=== PATIENT | female | born 1945 | race Caucasian/White ===

== ENCOUNTER 2017-05-19 08:10 | Emergency (ER) | payer MEDICARE, OTHER ==
[~2017-05-19] VITALS: Ht 157.5 cm; Wt 50.0 kg
[2017-05-19] MEDS ORDERED: ZITHROMAX250 MG PO (08:48)
[2017-05-19 08:52] VITALS: BP 113/62
== END 2017-05-19 09:00 | disposition home or self-care (01) ==
LOC: ED 08:10
DX: J40 Bronchitis, not specified as acute or chronic (principal); R06.02 Shortness of breath; R05 Cough

== ENCOUNTER 2017-05-27 10:11 | Emergency (ER) | payer MEDICARE, OTHER ==
[~2017-05-27] VITALS: Ht 157.5 cm; Wt 49.0 kg
[~2017-05-27 10:11] MED LIST: ZITHROMAX250 MG PO
[2017-05-27] MEDS ORDERED: METOPROL TAR25 MG PO (10:44)
[2017-05-27] MEDS ORDERED: OMEPRAZOLE10 MG PO (10:44)
[2017-05-27] MEDS ORDERED: SLOW-MAG PO (10:45)
[2017-05-27] MEDS ORDERED: ASPIRIN81 MG PO (10:45)
[2017-05-27] MEDS ORDERED: SIMVASTATIN40 MG PO (10:46)
[2017-05-27] MEDS ORDERED: MIRTAZAPINE15 MG PO (10:46)
[2017-05-27] MEDS ORDERED: PROAIR HFA IN (10:47)
[2017-05-27 10:56] LABS: URINE BILIRUBIN - DIPSTICK NEGATIVE (NEGATIVE); URINE BLOOD DIPSTICK SMALL (NEGATIVE); URINE CLARITY CLEAR; URINE COLOR YELLOW; URINE GLUCOSE - DIPSTICK NEGATIVE (NEGATIVE); URINE KETONE NEGATIVE (NEGATIVE); URINE LEUK ESTERASE NEGATIVE (NEGATIVE); URINE NITRITE - DIPSTICK NEGATIVE (Negative); URINE PROTEIN - DIPSTICK NEGATIVE (NEG-TRACE); URINE SPECIFIC GRAVITY 1.015; URINE UROBILINOGEN - DIPSTICK 0.2 E.U./dL (0.2)
[2017-05-27 10:59] LABS: HEMATOCRIT 46.1 % (37.0-47.0); HEMOGLOBIN 14.9 g/dl (12.0-16.0); IMMATURE GRANULOCYTES 1.1 % (0.0-1.0); MEAN CELL VOLUME 97.1 fL CALC (80.0-100.0); MEAN CORPUSCULAR HGB 31.4 pG CALC (26.0-32.0); MEAN CORPUSCULAR HGB CONC 32.3 g/L CALC (32.0-36.0); NEUT# 4.94 thou/uL (2.00-7.15); RED BLOOD COUNT 4.75 mill/uL (4.20-5.60); RED CELL DISTRI WIDTH 12.1 % (11.5-15.5)
[2017-05-27 11:11] LABS: URINE SQUAMOUS EPITHELIAL CELL FEW EPI/hpf (0-FEW); URINE WBC 0-2 WBC/hpf (0-5)
[2017-05-27 11:34] LABS: ALBUMIN 4.7 g/dL (3.2-5.0); ALKALINE PHOSPHATASE 90 u/l (38-126); ANION GAP 17 (6-22 (CALC)); BILIRUBIN, TOTAL 0.6 mg/dL (0.0-1.4); BUN 18 mg/dL (8-23); BUN/CREATININE RATIO 28 (12-20 (CALC)); CALCIUM 9.8 mg/dL (8.4-10.2); CARBON DIOXIDE 32 mmol/l (22-30); CHLORIDE 97 mmol/l (95-108); CREATININE 0.6 mg/dL (0.5-1.0); GFR > 60 ML/MIN (>=60 (CALC)); GFR FOR AFR.AMER. > 60 ML/MIN (>=60 (CALC)); GLUCOSE 85 mg/dL (82-115); POTASSIUM 3.9 mmol/l (3.5-5.1); SGOT/AST 26 u/l (9-36); SGPT/ALT 30 u/l (11-66); SODIUM 142 mmol/l (137-146); TOTAL PROTEIN 8.3 g/dL (6.3-8.2)
[2017-05-27 11:46] LABS: MYOGLOBIN 40 ng/mL (0 - 62)
[2017-05-27] MEDS ORDERED: LEVAQUIN750 MG PO (13:22)
[2017-05-27] MEDS ORDERED: TYLENOL # 31 TA1 PO (13:22)
[2017-05-27] MEDS ORDERED: MEDDOSEPAK PO (13:22)
[2017-05-27 13:30] VITALS: BP 103/61
== END 2017-05-27 13:38 | disposition home or self-care (01) ==
LOC: ED 10:11
PROVIDERS: Emergency Medicine
DX: J40 Bronchitis, not specified as acute or chronic (principal); Z72.0 Tobacco use; R04.2 Hemoptysis; R91.8 Other nonspecific abnormal finding of lung field; R94.31 Abnormal electrocardiogram [ECG] [EKG]; I10 Essential (primary) hypertension

== ENCOUNTER 2017-07-06 14:16 | Emergency (ER) | payer MEDICARE, OTHER ==
[~2017-07-06] VITALS: Ht 157.5 cm; Wt 46.0 kg
[~2017-07-06 14:16] MED LIST changes: +ASPIRIN81 MG PO; +LEVAQUIN750 MG PO; +MEDDOSEPAK PO; +METOPROL TAR25 MG PO; +MIRTAZAPINE15 MG PO; +OMEPRAZOLE10 MG PO; +PROAIR HFA IN; +SIMVASTATIN40 MG PO; +SLOW-MAG PO; +TYLENOL # 31 TA1 PO
[2017-07-06] MEDS ORDERED: MEDDOSEPAK PO (16:05)
[2017-07-06] MEDS ORDERED: ZITHROMAX250 MG PO (16:05)
[2017-07-06 16:24] VITALS: BP 105/70
== END 2017-07-06 16:34 | disposition home or self-care (01) ==
LOC: ED 14:16
DX: R50.9 Fever, unspecified (principal); R05 Cough; J44.9 Chronic obstructive pulmonary disease, unspecified; F17.210 Nicotine dependence, cigarettes, uncomplicated; R09.89 Other specified symptoms and signs involving the circulatory and respiratory systems

== ENCOUNTER 2017-11-09 13:16 | Emergency (ER) | payer MEDICARE, OTHER ==
[~2017-11-09] VITALS: Ht 157.5 cm; Wt 50.4 kg
[2017-11-09] MEDS ORDERED: VENTOLIN HFA IN (13:47)
[2017-11-09] MEDS ORDERED: PREDNISONE50 MG PO (13:47)
[2017-11-09] MEDS ORDERED: ALBUTEROL SUL0.083 % IN (13:47)
[2017-11-09] MEDS ORDERED: ZITHROMAX250 MG PO (13:47)
[2017-11-09] MEDS ORDERED: COMBIVENT RESPIMAT IN (14:25)
[2017-11-09 14:44] VITALS: BP 102/67
== END 2017-11-09 14:50 | disposition home or self-care (01) ==
LOC: ED 13:16
DX: J44.0 Chronic obstructive pulmonary disease with (acute) lower respiratory infection (principal); J20.9 Acute bronchitis, unspecified; I10 Essential (primary) hypertension; K21.9 Gastro-esophageal reflux disease without esophagitis; E78.00 Pure hypercholesterolemia, unspecified; F32.9 Major depressive disorder, single episode, unspecified; F17.210 Nicotine dependence, cigarettes, uncomplicated

== ENCOUNTER 2017-12-31 13:07 | Emergency (ER) | payer MEDICARE, OTHER ==
[~2017-12-31] VITALS: Ht 157.5 cm; Wt 52.7 kg
[~2017-12-31 13:07] MED LIST changes: +ALBUTEROL SUL0.083 % IN; +COMBIVENT RESPIMAT IN; +PREDNISONE50 MG PO; +VENTOLIN HFA IN
[2017-12-31 14:17] LABS: HEMATOCRIT 42.8 % (37.0-47.0); HEMOGLOBIN 13.9 g/dl (12.0-16.0); IMMATURE GRANULOCYTES 0.3 % (0.0-1.0); MEAN CELL VOLUME 97.3 fL CALC (80.0-100.0); MEAN CORPUSCULAR HGB 31.6 pG CALC (26.0-32.0); MEAN CORPUSCULAR HGB CONC 32.5 g/L CALC (32.0-36.0); NEUT# 3.94 thou/uL (2.00-7.15); RED BLOOD COUNT 4.4 mill/uL (4.20-5.60); RED CELL DISTRI WIDTH 12.7 % (11.5-15.5)
[2017-12-31 15:02] LABS: ANION GAP 16 (6-22 (CALC)); BUN 17 mg/dL (8-23); BUN/CREATININE RATIO 30 (12-20 (CALC)); CARBON DIOXIDE 30 mmol/l (22-30); CHLORIDE 102 mmol/l (95-108); CREATININE 0.6 mg/dL (0.5-1.0); GFR > 60 ML/MIN (>=60 (CALC)); GFR FOR AFR.AMER. > 60 ML/MIN (>=60 (CALC)); POTASSIUM 4.1 mmol/l (3.5-5.1); SODIUM 145 mmol/l (137-146)
[2017-12-31] MEDS ORDERED: PREDNISONE50 MG PO (15:19)
[2017-12-31] MEDS ORDERED: ZPAK PO (15:19)
[2017-12-31 15:35] VITALS: BP 110/65
== END 2017-12-31 15:46 | disposition home or self-care (01) ==
LOC: ED 13:07
PROVIDERS: Family Medicine
DX: J44.1 Chronic obstructive pulmonary disease with (acute) exacerbation (principal); I10 Essential (primary) hypertension; E78.00 Pure hypercholesterolemia, unspecified; K21.9 Gastro-esophageal reflux disease without esophagitis; F32.9 Major depressive disorder, single episode, unspecified; F17.210 Nicotine dependence, cigarettes, uncomplicated

== ENCOUNTER 2019-10-13 | Emergency (ER) | payer MEDICARE, OTHER ==
[~2019-10-13] MED LIST changes: +ZPAK PO
[2019-10-13 18:50] LABS: HEMATOCRIT 46.7 % (37.0-47.0); HEMOGLOBIN 14.6 g/dl (12.0-16.0); IMMATURE GRANULOCYTES 0.3 % (0.0-5.0); MEAN CELL VOLUME 98.1 fL CALC (80.0-100.0); MEAN CORPUSCULAR HGB 30.7 pG CALC (26.0-32.0); MEAN CORPUSCULAR HGB CONC 31.3 g/L CALC (32.0-36.0); NEUT# 3.61 thou/uL (2.00-7.15); RED BLOOD COUNT 4.76 mill/uL (4.20-5.60); RED CELL DISTRI WIDTH 12.7 % (11.5-15.5)
[2019-10-13 19:33] LABS: ALKALINE PHOSPHATASE 71 u/l (38-126); ANION GAP 15 (6-22 (CALC)); BILIRUBIN, TOTAL 0.4 mg/dL (0.0-1.4); BUN 15 mg/dL (8-23); BUN/CREATININE RATIO 35 (12-20 (CALC)); CARBON DIOXIDE 28 mmol/l (22-30); CHLORIDE 100 mmol/l (95-108); CREATININE 0.4 mg/dL (0.5-1.0); GFR > 60 ML/MIN (>=60 (CALC)); GFR FOR AFR.AMER. > 60 ML/MIN (>=60 (CALC)); POTASSIUM 4.2 mmol/l (3.5-5.1); SGOT/AST 24 u/l (9-36); SODIUM 139 mmol/l (137-146); TOTAL PROTEIN 7.5 g/dL (6.3-8.2)
[2019-10-13 19:35] LABS: ALBUMIN 4.7 g/dL (3.2-5.0)
[2019-10-13] MEDS ORDERED: MIRALAX3350 N1 PO ×2 (20:45)
== END 2019-10-13 21:00 | disposition home or self-care (01) ==
PROVIDERS: Family Medicine
DX: K59.00 Constipation, unspecified (principal); I10 Essential (primary) hypertension; J44.9 Chronic obstructive pulmonary disease, unspecified; F17.210 Nicotine dependence, cigarettes, uncomplicated

== ENCOUNTER 2020-04-14 10:13 | Observation (INO) | payer MEDICARE, OTHER ==
[~2020-04-14] VITALS: Ht 157.5 cm; Wt 55.9 kg
[~2020-04-14 10:13] MED LIST changes: +MIRALAX3350 N1 PO
--- NOTE | 2020-04-14 10:13 | NUR ---
PATIENT TO ROOM VIA EMS AND PHYSICIAN AT BEDSIDE FOR EVAL
[2020-04-14 10:52] LABS: HEMATOCRIT 45.2 % (37.0-47.0); HEMOGLOBIN 14.2 g/dl (12.0-16.0); IMMATURE GRANULOCYTES 0.4 % (0.0-5.0); MEAN CELL VOLUME 97.8 fL CALC (80.0-100.0); MEAN CORPUSCULAR HGB 30.7 pG CALC (26.0-32.0); MEAN CORPUSCULAR HGB CONC 31.4 g/dL CAL (32.0-36.0); NEUT# 12.77 thou/uL (2.00-7.15); RED BLOOD COUNT 4.62 mill/uL (4.20-5.60); RED CELL DISTRI WIDTH 12.2 % (11.5-15.5)
--- NOTE | 2020-04-14 11:00 | NUR ---
IN HIGH FOWLERS, DENIES CHEST PAIN AT THIS TIME.
[2020-04-14 11:05] LABS: ALBUMIN 4.5 g/dL (3.2-5.0); ALKALINE PHOSPHATASE 88 u/l (38-126); ANION GAP 10 (6-22 (CALC)); BUN 17 mg/dL (8-23); BUN/CREATININE RATIO 33 (12-20 (CALC)); CARBON DIOXIDE 32 mmol/l (22-30); CHLORIDE 99 mmol/l (95-108); CREATININE 0.5 mg/dL (0.5-1.0); GFR > 60 ML/MIN (>=60 (CALC)); GFR FOR AFR.AMER. > 60 ML/MIN (>=60 (CALC)); POTASSIUM 4.4 mmol/l (3.5-5.1); SGOT/AST 19 u/l (9-36); SODIUM 137 mmol/l (137-146); TOTAL PROTEIN 7.5 g/dL (6.3-8.2)
[2020-04-14 11:10] LABS: ACT PARTIAL THROMBO TIME 25.9 SECONDS (20.0-32.5); BILIRUBIN, TOTAL 0.6 mg/dL (0.0-1.4); INTERNATIONAL NORMALIZED RATIO 0.9 RATIO (0.7-1.3); PROTHROMBIN TIME 9.3 SECONDS (9.0-12.5)
--- NOTE | 2020-04-14 12:10 | NUR ---
ASSISTED TO BEDSIDE COMMODE. SHORTNESS OF BREATH NOTED ON EXERTION.
--- NOTE | 2020-04-14 12:30 | NUR ---
Nati in ED contacted marketing copywriter for guidance on admission status - given current clinical results, Observational status recommended.
[2020-04-14] MEDS ORDERED: PROAIR HFA108 MCG/AC IN (12:41)
[2020-04-14] MEDS ORDERED: VITAMIN D PO (12:42)
--- NOTE | 2020-04-14 12:46 | NUR ---
MD AT BEDSIDE TO DISCUSS RESULTS AND PLAN OF CARE.
--- NOTE | 2020-04-14 13:30 | NUR ---
PT REMAINS PAIN FREE AT THIS TIME AND IS AWARE OF PENDING ADMISSION.
--- NOTE | 2020-04-14 14:00 | NUR ---
REPORT CALL TO CHRISTO CARTER.
--- NOTE | 2020-04-14 14:25 | NUR ---
PT ARRIVED TO MED/SURG ROOM 274 IN STABLE CONDITION VIA STRETCHER ACCOMPANIED BY MICHELLE SHELDON AND DAUGHTER;PT AMBULATED TO RESTROOM AND BEDSIDE WITH A STEADY GAIT AND 1 PERSON ASSIST;PT A&O X3,ORIENTED TO ROOM AND CALL LIGHT SYSTEM;WT AND VS OBTAINED BY GIGI CROWLEY;PT REPORTS CHEST PAIN SILVICULTURIST AT HOME THAT LAST 30 MINS;PT DENIES ANY CURRENT CHEST PAIN OR PRESSURE,PAIN SCALE AND REPORTING EDUCATED;RESPIRATIONS EVEN AND UNLABORED,SHALLOW ON O2 @ 2L VIA NC. IT SHOULD BE NOTED THAT PT IS HOME OXYGEN DEPENDENT;CLEAR/DIMINISHED LUNG SOUNDS;PT DOES REPORT A PRODUCTIVE COUGH STATES " THATS MY COPD COUGH", SPUTUM NOT VISUALIZED BY WRITTER;ABDOMEN SOFT ON PALPATION AND ACTIVE IN ALL QUADRANTS,LAST BM 04/14/20;STRONG PEDAL PULSES;SKIN INTACT;TELE MONITORING IN PLACE;EMS #20G TO LAC FLUSHED AND PATENT,SITE APPEARS HEALTHY;ALLERGY AND FALL BAND APPLIED;PT DENIES ANY ADDITIONAL NEEDS AND IS ENCOURAGED TO CALL FOR ASSISTANCE IF NEEDED;FALL PRECAUTIONS IN PLACE WITH BED IN THE LOWEST POSITION AND CALL LIGHT IN REACH;WILL CONTINUE TO MONITOR
--- NOTE | 2020-04-14 14:40 | NUR ---
Admission Note Report Given to: CHRISTO CARTER Transported by: Wheelchair X Stretcher Transported with: X Nurse Transporter X Patent IV X O2 X Hemmer Chainstitch Location: ICU X MS2 PATIENT TO ROOM 274 IN STABLE CONDITION ON TELE MONITOR. CARE RELINQUISHED TO CHRISTO CARTER.
[2020-04-14 14:58] VITALS: BP 124/73
--- NOTE | 2020-04-14 17:00 | NUR ---
PT RESTING IN SEMI FOWLERS POSITION;RESPIRATIONS EVEN AND UNLABORED ON O2 @ 2L VIA NC;PT DENIES ANY CURRENT CHEST PAIN OR PRESSURE;IV SITE PATENT;TELE MONITORING IN PLACE;PT ENCOURAGED TO CALL FOR ASSISTANCE IF NEEDED;FALL PRECAUTIONS IN PLACE WITH BED IN THE LOWEST POSITION AND CALL LIGHT IN REACH;WILL CONTINUE TO MONITOR
--- NOTE | 2020-04-14 19:10 | NUR ---
REPORT FROM EMMA VILLAFUERTE. PT SITTING UP ON COUCH IN ROOM. ALERT AND ORIENTED. 02 @ 2L/M VIA NC. NO APPARENT RESPIRATORY DISTRESS NOTED. PT DENIES ANY PAIN OR DISCOMFORT. IV SITE APPEARS HEALTHY. RE ETCHER IN PLACE. PT REQUESTING NIGHT TIME HOME MEDICATIONS, WILL REVIEW MAR. DISCUSSED POC. PT VERBALIZED UNDERSTANDING. DENIES ANY OTHER WANTS OR NEEDS. CALL LIGHT WITHIN REACH. WILL CONTINUE TO MONITOR.
[2020-04-14 19:35] VITALS: BP 105/62
[2020-04-14 23:35] VITALS: BP 104/60
--- NOTE | 2020-04-14 23:46 | NUR ---
PT RESTING IN BED WITH EYES CLOSED. NO APPARENT DISTRESS NOTED. RESPIRATIONS EVEN AND UNLABORED. [address] CALL LIGHT WITHIN REACH. WILL CONTINUE TO MONITOR.
[2020-04-15 03:30] VITALS: BP 93/50
--- NOTE | 2020-04-15 03:37 | NUR ---
PT RESTING IN BED WITH EYES CLOSED. NO APPARENT DISTRESS NOTED. RESPIRATIONS EVEN AND UNLABORED. CALL LIGHT WITHIN REACH. WILL CONTINUE TO MONITOR.
[2020-04-15 06:17] LABS: HEMATOCRIT 42.2 % (37.0-47.0); HEMOGLOBIN 13.2 g/dl (12.0-16.0); IMMATURE GRANULOCYTES 0.4 % (0.0-5.0); MEAN CELL VOLUME 99.3 fL CALC (80.0-100.0); MEAN CORPUSCULAR HGB 31.1 pG CALC (26.0-32.0); MEAN CORPUSCULAR HGB CONC 31.3 g/dL CAL (32.0-36.0); NEUT# 6.63 thou/uL (2.00-7.15); RED BLOOD COUNT 4.25 mill/uL (4.20-5.60); RED CELL DISTRI WIDTH 12.4 % (11.5-15.5)
[2020-04-15 06:34] LABS: ALKALINE PHOSPHATASE 77 u/l (38-126); ANION GAP 12 (6-22 (CALC)); BILIRUBIN, TOTAL 0.4 mg/dL (0.0-1.4); BUN 22 mg/dL (8-23); BUN/CREATININE RATIO 38 (12-20 (CALC)); CALCULATED LDLCHOLESTEROL 60 mg/dL (62-129 (CALC)); CARBON DIOXIDE 30 mmol/l (22-30); CHLORIDE 100 mmol/l (95-108); CHOLESTEROL HDL RATIO 3.1 (<4.4 (CALC)); CREATININE 0.6 mg/dL (0.5-1.0); GFR > 60 ML/MIN (>=60 (CALC)); GFR FOR AFR.AMER. > 60 ML/MIN (>=60 (CALC)); HDL CHOLESTEROL 46 mg/dL (>=40); MAGNESIUM 2.1 mg/dL (1.6-2.3); SGOT/AST 17 u/l (9-36); SODIUM 137 mmol/l (137-146); TOTAL CHOLESTEROL 145 mg/dl (0-199); TOTAL PROTEIN 6.5 g/dL (6.3-8.2); TOTAL TRIGLYCERIDES 192 mg/dl (30-149); VLDL CHOLESTROL 38 mg/dl (0-48 (CALC))
[2020-04-15] MEDS ORDERED: MEDDOSEPAK PO (08:16)
[2020-04-15] MEDS ORDERED: FLEXERIL5 M1 PO (08:16)
--- NOTE | 2020-04-15 10:41 | NUR ---
PT WILL BENEFIT FROM PHYSICAL THERAPY INTERVENTION. REQUESTING ORDER FOR PT EVAL. THANKS.
[2020-04-15 10:58] VITALS: BP 96/61
--- NOTE | 2020-04-15 13:50 | NUR ---
Discharge instructions given. Patient verb understanding to pickler helper rx, and to continue home medications. Patient instructed to return back to the hospital for any chest pain or signs and symptoms of infection. LAC 20g d/c no s/s of complications. Patient discharge via wheelchair.
== END 2020-04-15 13:59 | disposition home or self-care (01) ==
LOC: ED 10:13 → ED-I 12:10 → ED 12:28 → MS2 12:29 → ED-I 12:29 → MS2 13:12
PROVIDERS: Nurse Practitioner; Student in an Organized Health Care Education/Training Program; ADMIT Internal Medicine; ATTEND Internal Medicine
DX: R07.81 Pleurodynia (principal); I10 Essential (primary) hypertension; J44.9 Chronic obstructive pulmonary disease, unspecified; E78.5 Hyperlipidemia, unspecified; K21.9 Gastro-esophageal reflux disease without esophagitis; F32.9 Major depressive disorder, single episode, unspecified; F17.210 Nicotine dependence, cigarettes, uncomplicated; Z20.828 Contact with and (suspected) exposure to other viral communicable diseases
CPT/HCPCS: G0378; J1650

== ENCOUNTER 2021-04-05 00:07 | Inpatient (IN) | payer MEDICARE, OTHER ==
[~2021-04-05] VITALS: Ht 165.1 cm; Wt 51.2 kg
[2021-04-05] VITALS (13 sets, daily range): BP systolic 104–157; BP diastolic 53–86
[~2021-04-05 00:07] MED LIST changes: +COLACE100 MG PO; +FLEXERIL5 M1 PO; +IPRATROPIU0.5 MG/3 M IN; +MACROBID100 M1 PO; +MIRALAX17 GM PO; +PREDNISONE10 MG PO; +PROAIR HFA108 MCG/AC IN; +VITAMIN D1000 UNI1 PO; +XANAX0.25 MG PO
--- NOTE | 2021-04-05 00:10 | NUR ---
PT ARRIVED VIA EMS
[2021-04-05] MEDS ORDERED: ZITHROMAX Z-PA250 MG (00:58)
[2021-04-05] MEDS ORDERED: NITROFURANTN100 M2 PO (00:58)
[2021-04-05 01:03] LABS: HEMATOCRIT 43.2 % (37.0-47.0); HEMOGLOBIN 13.6 g/dl (12.0-16.0); IMMATURE GRANULOCYTES 1.6 % (0.0-5.0); MEAN CELL VOLUME 100.2 fL CALC (80.0-100.0); MEAN CORPUSCULAR HGB 31.6 pG CALC (26.0-32.0); MEAN CORPUSCULAR HGB CONC 31.5 g/dL CAL (32.0-36.0); NEUT# 13.98 thou/uL (2.00-7.15); RED BLOOD COUNT 4.31 mill/uL (4.20-5.60); RED CELL DISTRI WIDTH 13.3 % (11.5-15.5)
--- NOTE | 2021-04-05 01:05 | NUR ---
PT STATES SHE CAN BREATHE BETTER DENIES PAIN OF ANY SOURCE.ST NO ECTOPY
[2021-04-05 01:13] LABS: PROTHROMBIN TIME 10.1 SECONDS (9.0-12.5)
[2021-04-05 01:15] LABS: ALBUMIN 3.6 g/dL (3.2-5.0); BILIRUBIN, TOTAL 0.6 mg/dL (0.0-1.4); BUN 12 mg/dL (8-23); BUN/CREATININE RATIO 27 (12-20 (CALC)); CHLORIDE 103 mmol/l (95-108); CREATININE 0.5 mg/dL (0.5-1.0); GFR > 60 ML/MIN (>=60 (CALC)); GFR FOR AFR.AMER. > 60 ML/MIN (>=60 (CALC)); SODIUM 141 mmol/l (137-146)
[2021-04-05 01:16] LABS: ALKALINE PHOSPHATASE 249 u/l (38-126); ANION GAP 17 (6-22 (CALC)); CARBON DIOXIDE 24 mmol/l (22-30); POTASSIUM 2.8 mmol/l (3.5-5.1); SGOT/AST 89 u/l (9-36); TOTAL PROTEIN 7.2 g/dL (6.3-8.2)
[2021-04-05 01:23] LABS: D-DIMER 2.31 mg/L (0.19-0.60)
--- NOTE | 2021-04-05 01:30 | NUR ---
PT VOIDS 100CC CONC YELLOW URINE ON BP SPEC TO LAB.
[2021-04-05 01:55] LABS: URINE BILIRUBIN - DIPSTICK NEGATIVE (NEGATIVE); URINE BLOOD DIPSTICK TRACE-INTACT (NEGATIVE); URINE COLOR YELLOW; URINE GLUCOSE - DIPSTICK NEGATIVE (NEGATIVE); URINE KETONE 40 mg/dL (NEGATIVE); URINE PH 5.5 (4.5-8.0); URINE PROTEIN - DIPSTICK 100 mg/dL (NEG-TRACE); URINE SPECIFIC GRAVITY >=1.030; URINE UROBILINOGEN - DIPSTICK 0.2 E.U./dL (0.2)
[2021-04-05 02:08] LABS: URINE NITRITE - DIPSTICK NEGATIVE (Negative)
[2021-04-05 02:10] LABS: URINE BACTERIA FEW hpf; URINE EPITHELIAL CELLS MODERATE EPI/hpf (0-FEW); URINE LEUK ESTERASE NEGATIVE (NEGATIVE)
[2021-04-05 02:11] LABS: URINE FINE GRAN CAST FEW lpf; URINE HYALINE CAST FEW lpf (NONE-RARE)
--- NOTE | 2021-04-05 02:30 | NUR ---
W/P/D SKIN NO COUGH ST SR NO ST T CHANGES
--- NOTE | 2021-04-05 03:12 | NUR ---
ON BEDPAN TO VOID NO CP NO COUGH MILD EXEERTIONAL DYSPNEA WITH MANEUVERS IN BED W/P/D SKIN
--- NOTE | 2021-04-05 03:38 | NUR ---
PHONE REPORT TO NURSE BAKER IN ICU
--- NOTE | 2021-04-05 03:43 | NUR ---
PT TRANSPORTED TO ICU VIA STRETCHER ON CARD MONITOR IN IMPROVED STABLE CONDITION
--- NOTE | 2021-04-05 04:33 | NUR ---
REPORT GIVEN BY AG IN ER. PATIENT ARRIVED AT 0350. ALERT AND ORIENTED X 4. RESP LABORED AND SHALLOW. FALL AND SAFTEY PRECAUTIONS IN PLACE. SKIN INTACT. IV INFUSING FLUIDS. ORIENTED TO ROOM, BED, AND CALL LIGHT. PLAN OF CARE DISCUSSED. PATIENT INFORMED TO CALL WITH ANY QUESTIONS OR CONCERNS.
--- NOTE | 2021-04-05 07:34 | NUR ---
PATIENT LAYING IN BED AT THIS TIME ALERT AND ORIENTED X 3. PATIENT EXHIBITS SHORTNESS OF BREATH UPON EXERTION. ARTIFICIAL SNOW MAKING MACHINE OPERATOR DONE AT THIS TIME (SEE INTERVENTIONS). LUNG SOUNDS ARE COARSE ANTERIOR AND POSTERIOR LUNG FILED ARE SLIGHTLY DIMINISHED. PHERIPHERAL PULSES ARE STRONG, SKIN IS INTACT. MONITOR SHOWS HR AT SINUS TACH AT 117. BREATH SOUNDS ARE SHALLOW. PATIENT DENIES ANY PAIN AT THIS TIME AND STATES HER PAIN IS A "0" ON THE PAIN SCALE OF 0-10. PATIENT ASSISTED TO BEDSIDE COMMODE AT THIS TIME AND PAITENT URINATED WITHOUT PAIN OR HESITATION 100 ML OF CLEAR YELLOW URINE AND HAD A SOFT BM BROWN IN COLOR. PATIENT RETURNED BACK TO BED AND SIDERAILS ARE UP CALL LIGHT WITHIN REACH.
[2021-04-05 07:58] LABS: MAGNESIUM 2.3 mg/dL (1.6-2.3)
[2021-04-05 07:59] LABS: ALKALINE PHOSPHATASE 201 u/l (38-126); BUN 10 mg/dL (8-23); BUN/CREATININE RATIO 27 (12-20 (CALC)); CARBON DIOXIDE 22 mmol/l (22-30); CHLORIDE 109 mmol/l (95-108); CREATININE 0.4 mg/dL (0.5-1.0); GFR > 60 ML/MIN (>=60 (CALC)); GFR FOR AFR.AMER. > 60 ML/MIN (>=60 (CALC)); SGOT/AST 57 u/l (9-36); SODIUM 141 mmol/l (137-146)
[2021-04-05 08:01] LABS: ANION GAP 14 (6-22 (CALC)); BILIRUBIN, TOTAL 0.3 mg/dL (0.0-1.4); TOTAL PROTEIN 5.7 g/dL (6.3-8.2)
--- NOTE | 2021-04-05 08:15 | NUR ---
PROVIDER CALLED AT THIS TIME WITH CRITICAL LAB VALUE: TROPONIN 0.310. NO NEW ORDERS GIVEN AT THIS TIME.
--- NOTE | 2021-04-05 09:06 | NUR ---
PATIENT DAUGHTER CALLED AT THIS TIME FOR UPDATE. PATIENTS DAUGHTER STATES THAT PATIENT IS NOT A "VERY BIG EATER". PATIENT DAUGHTER ALSO STATES MOTHER STILL SMOKES BUT HASN'T IN THE PAST 2 DAYS BECAUSE OF "NOT FEELING WELL". PATIENTS DAUGTHER ADVISED THAT PATIENT WILL CONTINUE TO BE MONITORED.
--- NOTE | 2021-04-05 09:22 | NUR ---
DR. SALES IN TO SEE PATIENT AT THIS TIME.
--- NOTE | 2021-04-05 10:00 | NUR ---
PATIENT ASSISTED UP TO BEDSIDE COMMODE AT THIS TIME. PATIENT HAD A SMALL BOWEL MOVEMENT AND BROWN IN COLOR. PATIENT DID URINATED BUT UNABLE TO MEASURE DUE TO STOOL. PATIENT THEN ASSISTED BACK TO BED. PATIENT DEV ANY PAIN AT THIS TIME BUT REMAINS SHORT OF BREATH UPON EXECERTION PATIENT WILL CONTINUE TO BE MONITORED.
--- NOTE | 2021-04-05 11:45 | NUR ---
DAUGHTER IN TO SEE PATIENT AT THIS TIME. PATIENT REQUESTING TO SIGN CHANGE HER STATUS FROM FULL CODE TO DNR STATUS. THIS NURSE DID EDUCATE PATIENT ON WHAT THIS MEANT AND PATIENT STATED "THATS WHAT I WANT". PATIENT SIGNED DNR PAPERWORK AT THIS TIME.
--- NOTE | 2021-04-05 12:00 | NUR ---
PATIENT LAYING IN BED AT THIS TIME. RESPIRATORY IN TO GIVE BREATHING TREATMENT. PATIENT CONTINUES TO BE SHORT OF BREATH ON EXECERTION. PATIENT DENIES ANY PAIN AT THIS TIME. 02 REMAINS ON AT 3 LITERS AND SPO2 CURRENTLY AT THIS TIME IS 99%. BREATHING PATTERN REMAINS LABORED AND LUNG CHERRY REMAIN DIMINISHED AT THIS TIME. PATIENT HAD PERIODICALLY DRY COUGH. SIDERAILS ARE UP CALL LIGHT IS WITHIN REACH.
--- NOTE | 2021-04-05 12:34 | NUR ---
LAB NOTIFIED THIS NURSE AT 1230 STATING TROPONIN LEVEL WAS 0.[address] SALES NOTIFIED OF CURRENT LAB VALUE. NO OTHER ORDERS GIVEN AT THIS TIME.
--- NOTE | 2021-04-05 13:17 | NUR ---
DNR PAPERWORK SIGNED AND SENT TO REGISTRATION AT THIS TIME.
--- NOTE | 2021-04-05 14:02 | NUR ---
PATIENT ASSISTED BACK TO BED FROM BEDSIDER COMMODE TO BED AT THIS TIME. PATIENT EXHIBITS SHORTNESS OF BREATH. PATIENT VOIDED 450CC OF URINE AT THIS TIME. EMS IV SITE D/C AT THIS TIME. CANNULA TIP INTACT AND AREA CLEANSED AND DRESSED WITH A 2X2 AND TAPE. NEW IV SITE STARTED IN THE LEFT HAND AND A #[address] AND SECURED. PATIENT O2 REMAINS ON AT 3 LITERS AND HER SPO2 IS AT 94% AT THIS TIME. SIDERAILS ARE UP CALL LIGHT IS WITHIN REACH.
--- NOTE | 2021-04-05 16:00 | NUR ---
PATIENT RESTING IN BED AT THIS TIME O2 REMAINS ON AT 3 LITERS. RT IN TO SEE PATIENT FOR BREATHING TREATMENT. PATIENT DENIES ANY PAIN AT THIS TIME. LUNG SOUNDS ARE DIMINISHED WITHOUT COARSE SOUNDS. HEART RATE IS CURRENTLY 106 AND IS SINUS TACHY AT THIS TIME WITHOUT PVC'S. SIDERAILS ARE UP X 2 CALL LIGHT IS WITHIN REACH.
--- NOTE | 2021-04-05 18:08 | NUR ---
PATIENT RESTING IN BED AT THIS TIME. PATIENT DENIES ANY PAIN AT THIS TIME. PATIENT STATES "I'M NOT THAT HUNGRY TODAY" DINNER TRAY SHOWS ONLY MINIMAL AMOUNT OF FOOD EATEN AT THIS TIME. PATIENT IS IN STABLE CONDITION FOR NEXT SHIFT AND WILL CONTINUE TO BE MONITORED.
--- NOTE | 2021-04-05 19:00 | NUR ---
REPORT GIVEN BY DENNIS. PATIENT RESTING IN BED AWAKE. RESP LABORED AND EVEN, 3L VIA NC. ANY KIND OF MOVEMENT MAKES THE PATIENT SOB. FALL AND SAFTEY PRECAUTIONS IN PLACE. IV INFUSING FLUIDS. WHEEZING PRESENT. SKIN INTACT. PLAN OF CARE DISCUSSED. PATIENT INFROMED TO CALL WITH ANY QUESTIONS OR CONCERNS.
--- NOTE | 2021-04-05 20:59 | NUR ---
PATIENT REQUESTING ALL PM MEDICATIONS TOGETHER AT THIS TIME
--- NOTE | 2021-04-05 23:06 | NUR ---
DR. SALES NOTIFIED OF CRITICAL TROP: 0.461, NO NEW ORDERS GIVEN
[2021-04-06] VITALS (7 sets, daily range): BP systolic 103–138; BP diastolic 53–110
--- NOTE | 2021-04-06 02:01 | NUR ---
PATIENT RESTING IN BED WITH EYES CLOSED. RESP EVEN AND UNLABORED. NO S/S OFDISTRESS NOTED. FALL AND SAFTEY PRECAUTIONS IN PLACE.
--- NOTE | 2021-04-06 05:47 | NUR ---
LAB AT THE BEDSIDE
[2021-04-06 06:03] LABS: MEAN CELL VOLUME 101.4 fL CALC (80.0-100.0); MEAN CORPUSCULAR HGB 31.1 pG CALC (26.0-32.0); MEAN CORPUSCULAR HGB CONC 30.6 g/dL CAL (32.0-36.0); RED BLOOD COUNT 3.67 mill/uL (4.20-5.60); RED CELL DISTRI WIDTH 13.5 % (11.5-15.5)
[2021-04-06 06:05] LABS: HEMATOCRIT 37.2 % (37.0-47.0); HEMOGLOBIN 11.4 g/dl (12.0-16.0)
[2021-04-06 06:21] LABS: ANION GAP 12 (6-22 (CALC)); BUN 16 mg/dL (8-23); BUN/CREATININE RATIO 36 (12-20 (CALC)); CARBON DIOXIDE 24 mmol/l (22-30); CHLORIDE 108 mmol/l (95-108); CREATININE 0.4 mg/dL (0.5-1.0); GFR > 60 ML/MIN (>=60 (CALC)); GFR FOR AFR.AMER. > 60 ML/MIN (>=60 (CALC)); MAGNESIUM 2.3 mg/dL (1.6-2.3); POTASSIUM 3.8 mmol/l (3.5-5.1); SODIUM 141 mmol/l (137-146)
--- NOTE | 2021-04-06 06:30 | NUR ---
RECEIVED REPORT FROM MICHELLE BAKER AT THIS TIME PATIENT IN STABLE CONDITION.
--- NOTE | 2021-04-06 06:44 | NUR ---
RECEIVED CALL FROM LAB OF CRITICAL TROPONIN LEVEL OF 0.[address] SALES CALLED AND NOTIFIED OF RESULTS. NO NEW ORDERS GIVEN AT THIS TIME.
--- NOTE | 2021-04-06 08:00 | NUR ---
PATIENT LAYING IN BED AT THIS TIME. PATIENT NOTED TO HAVE EATEN 100% OF HER BREAKFAST AT THIS TIME. RETENTION REPRESENTATIVE DONE ON PATIENT (SEE INTERVENTIONS). PATIENT DOES EXHIBIT EXPIRATORY WHEEZING AT THIS TIME AND A DRY NON PRODUCTIVE COUGH INTERMITTINGLY. PATIENT DEV ANY PAIN AND STATES HER PAIN LEVEL IS A "0" OUT OF THE PAIN SCALE OF 0-10. PATIENT BOWEL SOUNDS ARE PRESENT IN ALL FOUR QUADRANTS AND PATINET LAST BOWEL MOVEMENT HAS BEEN WITHIN THE LAST 24 HOURS. PATIENT REMAINS ON O2 AT 3L AND HER SPO2 AT THIS TIME IS 94%. HEART MONITOR IS READING SINUS TACH AND A HEART RATE OF 112 WITH 1 NOTED PVC AT THIS TIME. PATIENTS SIDERAILS ARE UP X 2 AND CALL LIGHT AND PERSONAL ITEMS WITHIN REACH. PATIENT ADVISED TO CALL NURSE IF SHE HAS ANY NEEDS.
--- NOTE | 2021-04-06 09:04 | NUR ---
PHYSICAL THEARPY IN TO SEE PATIENT AT THIS TIME.
--- NOTE | 2021-04-06 09:21 | NUR ---
PATIENT ASSISTED UP TO BEDSIDE COMMODE AT THIS TIME. PATIENT VOIDED 200 MLS OF CLEAR YELLOW URINE. IT IS NOTED THAT WHILE PATIENT GOT UP HER HR WENT TO 140 AND RESPIRATIONS ARE VERY LABORED. PATIENT RETURNED TO BED AT THIS TIME AND PATIENT BECAME VERY DIPHORECTIC. COLD COMPRESS GIVEN AND PATIENT GIVEN SOME BREATHING AND RELAXTION TECHNIQUES AND HR COMING DOWN AT THIS TIME. WILL CONTINUE TO MONITOR. SIDERAILS ARE UP CALL LIGHT WITHIN REACH.
--- NOTE | 2021-04-06 10:00 | NUR ---
PATIENT LAYING IN BED AT THIS TIME AND IS EXHIBITING SHORTNESS OF BREATH AND REQUESTING A BREATHING TREATMENT. RT CALL AT THIS TIME FOR TREATMENT. PATIENT MANAGER CHILD SHOWING PATIENT IS SINUS TACH AND HR OF 112 WITH 3 PVC'S AT THIS TIME. PATIENT DENIES PAIN AND STATES HER PAIN IS STILL A "0" OUT OF THE PAIN SCALE OF 0-10. PATIENT REMAINS ON O2 AT 3L AND SPO2 IS 93% AT THIS TIME. SIDERAILS ARE UP CALL LIGHT IS WITHIN REACH.
--- NOTE | 2021-04-06 10:15 | NUR ---
RT IN TO GIVE PATIENT A BREATHING DUO-NEB TREATMENT AT THIS TIME.
--- NOTE | 2021-04-06 10:42 | NUR ---
DR. SALES IN TO SEE PATIENT AT THIS TIME.
--- NOTE | 2021-04-06 12:09 | NUR ---
PATIENT SITTING UP IN BED AT THIS TIME. PATIENT DENIES ANY PAIN AND STATES HER PAIN IS A "0" OUT OF THE PAIN SCALE OF 0-10. PATIENT RESPIRATIONS ARE LABORED AND AT A RATE OF 32/PER MINUTE. HEART MONITOR READING IS HEART RATE OF 106 AND 1 PVC NOTED AND WITHOUT ANY BLOCKS NOTED AT THIS TIME. PATIENT SIDERAILS ARE UP X 2 CALL LIGHT AND PERSONAL ITEMS ARE WITHIN REACH.
--- NOTE | 2021-04-06 14:03 | NUR ---
PATIENT RESTING IN BED AT THIS TIME WITH SON AT BEDSIDE. PATIENT DENIES ANY NEEDS OR PAIN AT THIS TIME. SIDERAILS UP X2 CALL LIGHT WITHIN REACH.
--- NOTE | 2021-04-06 15:33 | NUR ---
LAB CALLED AND REPORTED CRITICAL LAB TROPONIN OF 0.[address] SALES CALLED. DR. SALES ASKED ME TO CALL PATIENTS DAUGHTER AND SPEAK TO HER ABOUT POSSIBLE TRANSFER AND AFTER CONVERSATION TO CALL HIM BACK.
--- NOTE | 2021-04-06 15:40 | NUR ---
THIS NURSE SPOKE TO PATIENT'S DAUGHTER (MOHAN) AT THIS TIME PER DR. SALES'S REQUEST. DAUGHTER WAS ADVISED OF PATIENTS CRITICAL LAB VALUE. DAUGHTER REQUESTED THAT THIS NURSE GO INTO PATIENTS ROOM AND SPEAK TO HER ABOUT THE POSSIBLITY OF A TRANSFER. I EXPLAINED TO DAUGHTER THAT I WOULD CALL HER BACK AFTER MY CONVERSAITON WITH HER MOHTER.
--- NOTE | 2021-04-06 15:50 | NUR ---
SPOKE TO PATIENT REGARDING HER NEW CRITICAL TROPONIN LEVEL AT THIS TIME. EDUCATED PATIENT ON IMPORTANCE OF BEING TRANSFERED AND THE BENEFITS EVEN THOUGH SHE HAS SIGNED A DNR. PATIENT STATED THAT "I AM NOT GOING TO BE TRANSFERED, I DO NOT WANT THAT AND IF SOMENTHING IS GOING TO HAPPEN TO ME THEN SO BE IT" PATIENT THEN LOOKED AT ME AND STATED "I AM TIRED DENNIS AND I JUST WANT TO GO". "IF I AM GOING TO THEN I AM GOING TO HERE". IT WAS EXPLAINED TO PATIENT THAT IT IS HER RIGHT TO WILLOW TRANSFER AND SHE STATED "I DO NOT WANT TO BE TRANSFERRED". PATIENT AT THIS TIME STATED THAT SHE WOULD LIKE TO HAVE SOMETHING FOR ANXIETY IF SHE COULD. DAUGHTER WAS CALLED AND THIS NURSE DID EXPLAINED TO THE DAUGHTER THAT PATIENT HAS REFUSED TO BE TRANSFERRED. NOA AT THIS TIME STATE THEN WE WILL HONOR HER WISHED AND ASKED THAT I CALL DR. SALES AND LET HIM KNOW.
--- NOTE | 2021-04-06 15:56 | NUR ---
DR. MAYA CALLED AT THIS TIME AND EXPLAINED TO HIM OF THE PATIENT AND FAMILIES DECISION NOT TO TRANSFER THE PATIENT TO A HIGHER LEVEL OF CARE. DR. SALES ALSO TOLD ABOUT THE PATIENTS NEED FOR ANXIETY MEDICATION AND ORDERS RECEIVED TO GIVE 0.25MG OF XANAX Q 12 PRN FOR ANXIETY.
--- NOTE | 2021-04-06 16:00 | NUR ---
PATIENT UP TO BEDSIDE COMMODE AT THIS TIME. PATIENT VERY SHORT OF BREATH AT THIS TIME. PATIENT DENEIS ANY PAIN AND STATES HER PAIN IS STILL A "0". PATIENT GIVEN 0.25 XANAX FOR ANXIETY AT THIS TIME. BED LINEN CHANGED BIOINFORMATICS SCIENTIST REMAINS IN PLACE CALL LIGHT WITHIN REACH SIDERAILS ARE UP X 2.
--- NOTE | 2021-04-06 19:10 | NUR ---
REPORT RECEIVED FROM ALTHEA MARTINEZ, PATIENT CARE ASSUMED AT THIS TIME.
--- NOTE | 2021-04-06 19:30 | NUR ---
PT RESTING IN BED, NO APPARENT DISTRESS, RESPIRATIONS REGULAR AND UNLABORED. APPEAR TO BE DOZING OFF. WAKES EASILY TO VERBAL STIMULI. PLAN OF CARE REVIEWED, PT MADE AWARE Mary SOLARES RN WILL BE PRIMARY NURSE WITH SUPERVISION. PT VERBALIZES UNDERSTANDING AND AGREEMENT. SNACK OFFERED. PT REQUESTS PEANUT BUTTER AND CRACKERS AND COLA. SNACK PROVIDED REQUESTED. PT DENIES FURTHER NEEDS AT THIS TIME. CALL NOVOA WITHIN REACH, AGREES TO CALL PRN.
--- NOTE | 2021-04-06 20:00 | NUR ---
PATIENT RESTING COMFORTABLY IN BED. PATIENT ORIENTED TO SELF, TIME, AND PLACE. LEADLIGHTER READING SYNUS TACH.PATIENT HAS NORMAL SALINE INFUSING AT 10ML/HR THROUGH A #22 IN HER LEFT HAND.DRY NON PRODUCTIVE COUGH NOTED WITH DIMINISHED BREATH SOUNDS. OXYGEN INFUSING THROUGH NASAL CANNULA AT RATE OF 3ML. PATIENT DENIES ANY PAIN AT THIS TIME. NO EDEMA OR SKIN BREAK DOWN.
--- NOTE | 2021-04-06 20:00 | NUR ---
PATIENT RESTING COMFORTABLY IN BED. PATIENT ORIENTED TO SELF, TIME, AND PLAC MEDIA DEVELOPER READING SYNUS TACH.PATIENT HAS NORMAL SALINE INFUSING AT 10ML/HR THROUGH A #22 IN HER LEFT HAND.DRY NON PRODUCTIVE COUGH NOTED WITH DIMINISHED BREATH SOUNDS. OXYGEN INFUSING THROUGH NASAL CANNULA AT RATE OF 3ML. PATIENT DENIES ANY PAIN AT THIS TIME. NO EDEMA OR SKIN BREAK DOWN. NO APPARENTS NEEDS AT THIS TIME. CARE PLAN DISCUSSED AT THIS TIME, PATIENT AGREES. CALL NOVOA AND BEDSIDE TABLE WITHIN REACH, PATIENT INSTRUCTED TO CALL
--- NOTE | 2021-04-06 21:27 | NUR ---
PATIENT UP TO [facility] AT THIS TIME. ASSIT OF ONE. ASSISTED BY NIK YU.
--- NOTE | 2021-04-06 21:27 | NUR ---
PATIENT UP TO [facility] AT THIS TIME. ASSIT OF ONE. ASSISTED BY NIK YU.
--- NOTE | 2021-04-06 21:38 | NUR ---
PATIENT RESTING COMFORTABLY IN BED. PATIENT ORIENTED TO SELF, TIME, AND PLACE. ASSISTANT COACH READING SYNUS TACH.PATIENT HAS NORMAL SALINE INFUSING AT 10ML/HR THROUGH A #22 IN HER LEFT HAND.DRY NON PRODUCTIVE COUGH NOTED WITH DIMINISHED BREATH SOUNDS. OXYGEN INFUSING THROUGH NASAL CANNULA AT RATE OF 3ML. PATIENT DENIES ANY PAIN AT THIS TIME. NO EDEMA OR SKIN BREAK DOWN. NO APPARENTS NEEDS AT THIS TIME. CARE PLAN DISCUSSED AT THIS TIME, PATIENT AGREES. CALL NOVOA AND BEDSIDE TABLE WITHIN REACH, PATIENT INSTRUCTED TO CALL.
--- NOTE | 2021-04-06 22:30 | NUR ---
TROPONIN LEVEL RESULTED, CALLED BY LAB. VALUE 0.536mg/nl. TRENDING DOWNWARD. PROVIDER ALREADY AWARE OF TREND. TROPONIN REPORTED TO DR. PERRIN. NO FURTHER ORDERS RECEIVED. NEXT TROPONIN DUE 04/07/21 AT 0600.
--- NOTE | 2021-04-06 23:31 | NUR ---
PATIENT UP TO [facility] AT THIS TIME. ASSIT OF ONE. ASSISTED BY BRAVO YU.
[2021-04-07] VITALS (7 sets, daily range): BP systolic 99–146; BP diastolic 65–87
--- NOTE | 2021-04-07 01:08 | NUR ---
ANTIBIOTIC, LEVAQUIN 750MG/150ML STARTED AT THIS TIME RUNNING AT 100ML/HR
--- NOTE | 2021-04-07 02:38 | NUR ---
ANTIBIOTIC COMPLETED AT THIS TIME. PATIENT SLEEPING COMFORTABLY.
--- NOTE | 2021-04-07 04:16 | NUR ---
PT ASSISSTED TO BSC AND BACK TO BED. PT SOB WITH ACTIVITY. 400ML CLEAR PALE YELLOW URINE EMPTIED. PT REQUESTS PRN XANAX. XANAX ADMINISTERED, SEE E-MAR. PT DENIES FURTHER NEEDS AT THIS TIME. CALL NOVOA WITHIN REACH, AGREES TO CALL PRN.
--- NOTE | 2021-04-07 05:39 | NUR ---
MEDICATION EDMINISTERED PER ORDER. SEE EMAR
--- NOTE | 2021-04-07 06:00 | NUR ---
BOOKER IN ROOM COLLECTING BLOOD SPECIMEN.
--- NOTE | 2021-04-07 07:40 | NUR ---
PATIENT ASSISTED TO BEDSIDE COMMODE AT THIS TIME. PATIENT VOIDED 275ML OF CLEAR YELLOW URINE AT THIS TIME. PATIENT IS VERY SHORT OF BREATH AT THIS TIME. PATIENT ENCOURAGE TO RELAX AND USE BREATHING TECHNIQUES OF BREATHING THROUGH NO AND BLOWING OUT THROUGH MOUTH. PATIENT DENIES ANY PAIN AT THIS TIME. 02 REMAINS ON AT 3 LITERS AND SPO2 IS CURRENTLY 89%. PATIENT CARDIAC MONTIOR READING SINUS TACH AT 118 BEAT PER MIN. CURRENT BP IS 146/87. LUNG FIELD REMAIN DIMINISHE THROUGHOUT AND EXPIRATORY WHEEZES NOTED. WHEN ASKED PATIENT DEV NEED FOR BREATHING TREATMENT. PATIENT ASSISTED BACK TO BED AND SIDERAILS ARE UP X 2 CALL LIGHT WITHIN REACH.
--- NOTE | 2021-04-07 08:44 | NUR ---
PT C C/O NOT BEING ABLE TO BREATHE THROUGH NOSE'/ ALWAYS BREATHING THROUGH MOUTH. GLOBAL CONSUMER SECTOR VICE PRESIDENT ENCOURAGED DEEP BREATHING EXCERCISES C NEB THERAPY AND PULMONARY TOILETING. NAD. VSS. GLOBAL CONSUMER SECTOR VICE PRESIDENT TO MONITOR.
--- NOTE | 2021-04-07 09:45 | NUR ---
DR. SALES IN TO VISIT WITH PATIENT AND DAUGHTER AT THIS TIME.
--- NOTE | 2021-04-07 10:00 | NUR ---
PATIENT LAYING IN BED AT THIS TIME. PATIENT DENEIS ANY PAIN. PATINET WAS GIVEN NEW MEDICATION AT THIS TIME CARDIZEM 30 MG P.O. PATINET WAS GIVEN EDUCATION REGARDING NEW MEDICATION TO INCLUDE SIDE EFFECTS. PATIENT VERBALIZED UNDERSTANDING OF MEDICATION. SIDERAILS ARE UP CALL LIGHT WITHIN REACH.
--- NOTE | 2021-04-07 10:10 | NUR ---
XRAY IN TO DO PORTABLE CHEST XRAY AT THIS TIME.
--- NOTE | 2021-04-07 10:47 | NUR ---
ADMINISTERED LEVALBUTEROL PER MD ORDER TO INITIATE NEW BRONCHODIALTOR THERAPY. PT TO MAGGIE. VSS. VP MARKETING TO MONITOR.
--- NOTE | 2021-04-07 11:50 | NUR ---
PATIENT RESTING IN BED AT THIS TIME. PATIENT DENIES PAIN AND STATES "I'M JUST TIRED". PATIENT RESPIRATIONS ARE LABORED AND EXPIRATORY WHEEZING IS HEARD. HEART RATE AT THIS TIME IS 114 BEATS /PER MIN. 02 REMAINS ON AT THIS TIME AND SPO2 IS 92%. PATIENT LUNCH IS AT BEDSIDE BUT PATIENT STATES "I'M NOT HUNGRY AT THIS TIME JUST LEAVE IT." ADVISED PATIENT TO CALL OUT TO NURSE WHEN SHE IS READY TO BE SET UP FOR LUNCH. SIDERAILS ARE UP CALL LIGHT WITHIN REACH.
--- NOTE | 2021-04-07 14:00 | NUR ---
PATIENT LAYING IN BED AT THIS TIME. PATIENT DENIES ANY NEEDS. PATIENTS BROTHERS ARE AT BEDSIDE AT THIS TIME.
--- NOTE | 2021-04-07 14:27 | NUR ---
ANIKA FROM LAB CALLED THIS NURSE TO GIVE A CRITICAL LAB VALUE FOR PATIENT AT THIS TIME. TROPONIN LEVEL IS NOT 0.276 AND IS TREDNING DOWN FROM PREVIOUS TEST. DR. BREEN NOTIFIED AND ALECIA WAITE WELL. NO NEW ORDERS GIVEN AT THIS TIME.
--- NOTE | 2021-04-07 14:45 | NUR ---
PT RESTING COMFORTABLY IN BED C FAMILY/VISITORS AT BEDSIDE. NO ACUTE DISTRESS NOTED. VITAL SIGNS TRENDING NORMAL FOR THIS PT. WELDING PANTOGRAPH MACHINE OPERATOR TO MONITOR.
--- NOTE | 2021-04-07 15:14 | NUR ---
Attempted to see patient. She is exhausted and has beengiven zanax by nursing We will resume in AM
--- NOTE | 2021-04-07 16:00 | NUR ---
PATIENT LAYING IN BED AT THIS TIME. PATIENT DENEIS ANY PAIN. PATIENT REMAINS SHORT OF BREATH AND VS AT THIS TIME WERE TAKEN SEE INTERVENTIONS. HR AT THIS TIME IS 118. PATIENT REMAINS ON O2 AT 3 LITERS AND SPO2 IS 89% CURRENTLY. PATIENT SIDERAILS ARE UP CALL LIGHT WITHIN REACH.
--- NOTE | 2021-04-07 16:05 | NUR ---
CALLED DR. SALES REGARDING PATIENTS HEART RATE AT THIS TIME. ORDERS GIVEN TO GIVE 5MG OF CARDIZEM IV X 1 AT THIS TIME AND MONITOR.
--- NOTE | 2021-04-07 16:45 | NUR ---
5MG OF IV CARIZEM GIVEN OVER TWO MINUTES TO PATIENT AT THIS TIME.
--- NOTE | 2021-04-07 17:15 | NUR ---
DINNER OFFERED TO PATIENT AT THIS TIME AND SHE DID DECIDE TO EAT DINNER. EVETTE ATE 100% OF DINNER AT THIS TIME.
--- NOTE | 2021-04-07 19:35 | NUR ---
RESTING IN BED ON ROUNDS. AWAKE, ALERT, ORIENTED X4. RESP SHALLOW, LABORED. RR 28-32. O2 SAT 84% ON O2 AT 3 L NC. BREATH SOUNDS COARSE THROUGHOUT WITH INSPIRATORY WHEEZES. NO PERIPHERAL EDEMA, PERIPHERAL PULSES INTACT. IV IN LH, SITE BENIGN, NS INFUSING AT KVO. PRODUCT MARKETING PROGRAMS MANAGER SHOWS ST WITH FREQ PAC'S AND PVC'S. DISCUSSED PLAN OF CARE. DENIES NEEDS AT THIS TIME. CALL NOVOA IN REACH.
--- NOTE | 2021-04-07 20:15 | NUR ---
REPOSITIONED IN BED. EXPLAINED TO PATIENT PUREWICK AND HOW IT WORKS, SHE STATES SHE WOULD LIKE TO TRY IT FOR THE NIGHT. LEE ANN-CARE GIVEN, PUREWICK PLACED.
--- NOTE | 2021-04-07 21:00 | NUR ---
PATIENT TOOK HS MEDS WITHOUT DIFFICULTY. PUREWICK DRAINING YELLOW URINE.
--- NOTE | 2021-04-07 22:00 | NUR ---
RESTING WITH EYES CLOSED. HR IN THE 90'S SINCE TAKING HS DOSE OF CARDIZEM AND LOPRESSOR.
[2021-04-08] VITALS (17 sets, daily range): BP systolic 100–157; BP diastolic 53–86
--- NOTE | 2021-04-08 | NUR ---
PATIENT REPOSITONED SELF ONTO LEFT SIDE. VSS. RESP REMAIN SHALLOW AND LABORED.
--- NOTE | 2021-04-08 02:00 | NUR ---
SLEEPING SOUNDLY. RESP SHALLOW, NON-LABORED A THIS TIME.
--- NOTE | 2021-04-08 04:00 | NUR ---
CONTINUES TO REST QUIETLY IN BED. STABLE VS. O2 SAT 93% LH IV SITE BENIGN, NS INFUSING AT KVO.
--- NOTE | 2021-04-08 05:50 | NUR ---
AWAKENS TO NAME. MERON STATES SHE SLEPT WELL. OFFERED TO GIVE PATIENT BED BATH AND LINEN CHANGE AT THIS TIME, PATIENT DECLINES STATING, "I JUST WANT TO REST." PUREWICK REMAINS IN PLACE. URINE OUTPUT FOR THIS SHIFT 400 ML CLEAR YELLOW URINE.
[2021-04-08 06:26] LABS: MEAN CELL VOLUME 98.5 fL CALC (80.0-100.0); MEAN CORPUSCULAR HGB CONC 32.5 g/dL CAL (32.0-36.0); RED BLOOD COUNT 4.06 mill/uL (4.20-5.60); RED CELL DISTRI WIDTH 12.9 % (11.5-15.5)
[2021-04-08 06:44] LABS: ALBUMIN 3.2 g/dL (3.2-5.0); ALKALINE PHOSPHATASE 160 u/l (38-126); BILIRUBIN, TOTAL 0.4 mg/dL (0.0-1.4); BUN 17 mg/dL (8-23); BUN/CREATININE RATIO 44 (12-20 (CALC)); CREATININE 0.4 mg/dL (0.5-1.0); GFR > 60 ML/MIN (>=60 (CALC)); GFR FOR AFR.AMER. > 60 ML/MIN (>=60 (CALC)); MAGNESIUM 2.2 mg/dL (1.6-2.3); POTASSIUM 3.6 mmol/l (3.5-5.1); SGOT/AST 27 u/l (9-36); SODIUM 137 mmol/l (137-146); TOTAL PROTEIN 5.7 g/dL (6.3-8.2)
[2021-04-08 06:45] LABS: ANION GAP 9 (6-22 (CALC)); CARBON DIOXIDE 38 mmol/l (22-30); CHLORIDE 94 mmol/l (95-108)
--- NOTE | 2021-04-08 07:10 | NUR ---
pt awake in bed; no acute distress noted; assessment completed at this time; pt alert and oriented; denies pain; pt admits/ voices complaints of shortness of breath; resp tachypneic and labored; lungs coarse with wheezing throughout; skin color wnl; o2 per nc at 3L; o2 sat 88%; loose productive cough noted/ blood tinged sputum observed; hr irreg; wk pedal pulses; no edema noted per adjusto writer operator; st ginoht freq pac/pvc on monitor; hr 120s; abd soft with bs present; n bm noted per adjusto writer operator; pt admits to bm yesterday; purewick intact with clear yellow urine noted to rui; #22 patent to with ivf infusing at kvo; no redness or edema noted at site; plan of care/ am meds explained; call light within reach; will continue to monitor
--- NOTE | 2021-04-08 07:23 | NUR ---
RT Clark present at bedside for neb tx; am meds administered for tachycardia/ xanax for anxiousness
--- NOTE | 2021-04-08 07:26 | NUR ---
PT C COARSE/WH THROUGHOUT L LUNG. RIGHT LUNG DIM/ABSENT AIR MOVEMENT THROUGHOUT. PT C DECREASED SPO2 AND INCREASED WOB/SOB/ ACCOUNT RESOLUTION EXPERT ADMIN BRONCHODILATOR THERAPY C O2. PT SPO2 INCREASED TO 95 ON NEBULIZER RUNNING OFF OF 10 LPM O2/100% FIO2. ACCOUNT RESOLUTION EXPERT TO MONITOR. RN IN ROOM C ACCOUNT RESOLUTION EXPERT AND PT AT THIS TIME. PT C STRONG NONPRODUCTIVE COUGH AT THIS TIME.
--- NOTE | 2021-04-08 08:00 | NUR ---
call received from Barbara Richardson, daughter; update provided; family to visit at 10am per prior arrangements
--- NOTE | 2021-04-08 08:15 | NUR ---
awake in bed attempting to eat breakfast; freq regulatory compliance manager coughing noted; o2 per nc; slow deep breathing encouraged; will continue to monitor
--- NOTE | 2021-04-08 09:30 | NUR ---
bath and linens change; pt repositioned; will continue to monitor
--- NOTE | 2021-04-08 09:55 | NUR ---
visitors x2 present at bedside
--- NOTE | 2021-04-08 10:25 | NUR ---
PT present at bedside to eval and treat
--- NOTE | 2021-04-08 11:20 | NUR ---
Dr Monson present at bedside to assess pt and discuss plan of care
--- NOTE | 2021-04-08 11:45 | NUR ---
Physical Therapy Visit Patient identified by full name and date of . 1. Shoulder shrugs x 10 repetitions 2. Ankle plantar and dorsiflexon x 10 repetitions 3. Straight leg raises x 10 repetitions 4. Quad-setting exercises x 10 repetitions 5. Breathing exercises Patient was able to perform all exercises but fatigued quickly. Shortness of breath observed throughout physical therapy session.
--- NOTE | 2021-04-08 11:48 | NUR ---
awake in bed; meal set up; RT at bedside; st on monitor; iv intact and patent; purewick intact; repositioned; call light within reach; will continue to monitor
--- NOTE | 2021-04-08 11:57 | NUR ---
PT DILLAN NEB THERAPY ELL AT THIS TIME. NAD. SPO2= MID TO HIGH 80'S. BBS= NO CHANGE FROM MRNING AUSCULTATION. PT C WEAK LOOSE COUGH. DANCING MASTER TO MONITOR.
--- NOTE | 2021-04-08 12:01 | NUR ---
pt awkae in bed; offers no complaints; iv intact and patent; no redness or edema noted at site; st pac/pvc on monitor; purewick intact; o2 per nc; resp labored; pt attempting to eat luch; will continue to monitor
--- NOTE | 2021-04-08 13:00 | NUR ---
visitors x2 present at bedside
--- NOTE | 2021-04-08 14:04 | NUR ---
pt awake in bed; resp slightly labored; pt offers no complaints; iv intact and patent; st on monitor; o2 per nc; call light within reach; will continue to monitor
--- NOTE | 2021-04-08 16:06 | NUR ---
pt resting in bed with eyes closed; resp unlabored; sr pac/pvc on monitor; purewick intact; o2 per nc; call light within reach; will continue to monitor
--- NOTE | 2021-04-08 16:54 | NUR ---
VISITOR X2 PRESENT AT BEDSIDE
--- NOTE | 2021-04-08 18:04 | NUR ---
awake in bed; visitation hours explained; iv intact and patent; no redness or edema noted at site; st pac/pvc on monitor; purewick catheter intact; o2 per nc; pt continues to attempt to eat dinner; call light within reach;
--- NOTE | 2021-04-08 19:50 | NUR ---
RESTING IN BED WITH EYES CLOSED. AWAKENS TO NAME. ALERT AND ORIENTED X4. DENIES PAIN OR DISCOMFORTS. RESP SHALLOW, NON-LABORED AT THIS TIME. O2 ON AT 3 L NC. O2 SAT 92% BREATH SOUNDS COARSE WITH FAINT INSPIRATORY WHEEZES THROUGHOUT LUNG CHERRY. NO PERIPHERAL EDEMA, PULSES INTACT. IV IN , SITE BENIGN. NS INFUSING AT 10 ML/HR. DISCUSSED PLAN OF CARE. DENIES NEEDS AT THIS TIME. CALL NOVOA IN REACH.
--- NOTE | 2021-04-08 21:00 | NUR ---
TOBACCO WRAPPING MACHINE TENDER DENYS HERE TO DO ECHO ON PATIENT. EXPLAINED ECHO TO PATIENT AND SHE DECLINED TO HAVE IT DONE.
--- NOTE | 2021-04-08 22:00 | NUR ---
PARTIAL LINEN CHANGE DONE. REPOSITIONED PATIENT IN BED. LEE ANN-CARE GIVEN AND PURE WICK CHANGED. SKIN INTACT. PATIENT VOICES NO COMPLAINTS. VSS.
[2021-04-09] VITALS (11 sets, daily range): BP systolic 89–144; BP diastolic 52–82
--- NOTE | 2021-04-09 00:05 | NUR ---
SLEEPING SOUNDLY. VSS. O2 SAT 91% SR WITH PAC'S AND PVC'S ON MONITOR.
--- NOTE | 2021-04-09 02:00 | NUR ---
SLEEPING. RESP NON-LABORED. VSS. SR WITH PAC'S AND PVC'S ON MONITOR.
--- NOTE | 2021-04-09 04:00 | NUR ---
PATEINT CONTINUES TO REST QUIETLY WITH EYES CLOSED. RESP NON-LABORED. VSS. NS CONTINUES TO INFUSE AT 10 ML/HR.
--- NOTE | 2021-04-09 06:00 | NUR ---
SLEPT WELL. VSS. RESP NON-LABORED. PURE WICK REMAINS IN PLACE, DRAINS CLEAR YELLOW URINE.
--- NOTE | 2021-04-09 07:20 | NUR ---
pt resting in bed with eyes closed; no apparent distress noted; easily arousable; offers no complaints; assessment completed at this time; pt alert and oriented; denies pain/ discomfort; no n/v noted; resp even and unlabored; lungs coarse with faint wheeze noted; water chemist cough noted; skin color wnl; o2 per nc at 3L; o2 sat 96%; hr irreg; wk pedal pulses; no edema noted; sr pac/pvc in monitor; abd soft with bs present; no bm noted per content writer; purewick intact and functioning well; #22 patent to with ivf infusing without complication; no redness or edema noted at site; plan of care/ am meds explained; pt repositioned high grady for breakfast; call light within reach; will continue to monitor
--- NOTE | 2021-04-09 07:36 | NUR ---
PT IN BED C BREAKFAST TRAY. RN AT BEDSIDE ASSISTING C BREAKFAST SET UP. PT C NAD. VSS. MANAGER RELIABILITY TO MONITOR. DILLAN AEROSOLIZED BRONCHODILATOR THERAPY WELL AT THIS TIME. NO MARKED CHANGES IN PRESENTATION. NO ADVERSE SIDE EFFECTS NOTED AT THIS TIME.
--- NOTE | 2021-04-09 08:00 | NUR ---
awake in bed; offers no complaints; iv intact and patent; no redness or edema noted at site; sr pac/pvc on monitor; purewick intact; call light within reach; will continue to monitor
--- NOTE | 2021-04-09 08:07 | NUR ---
call returned to Barbara Richardson (daughter); update provided
--- NOTE | 2021-04-09 08:45 | NUR ---
Dr Gomes present at bedside to assess pt and discuss plan of care/ transfer to [facility]
--- NOTE | 2021-04-09 10:06 | NUR ---
awake in bed; offers no complaints; iv intact; o2 per nc; sr pac/pvc on monitor; call light within reach; will continue to monitor
--- NOTE | 2021-04-09 12:00 | NUR ---
pt resting in bed with eyes closed; no apparent distress noted; easily aroused; declined lunch at this time; sr pac/pvc on monitor; o2 per nc; purewick remains in place; placed in high fowlers for lunch; will continue to monitor
--- NOTE | 2021-04-09 12:20 | NUR ---
BBS=/ BETTER AERATION COMPARED TO ASCULTATION AT THIS TIME YESTERDAY. R LUNG FIELD = MARKED IMPROVEMENT OF AERATION, WITH CLEAR/DIM IN LOWER AND MID LOBES. SLIGHT EXP WH HEARD IN URL. LL FIELD= HZ THROUGHOUT, WITH BETTER AERATION WELL COMPARED TO YESTERDAYS ASCULTATION. PT DILLAN NEB WELL. NAD. VSS. NO ADERSE EFFECT FROM BRONCHODILATOR THERAPY. SODIUM CHLORITE OPERATOR TO MONITOR.
--- NOTE | 2021-04-09 12:39 | NUR ---
PT present at bedside
--- NOTE | 2021-04-09 13:24 | NUR ---
Physical Therapy Visit Patient identified by full name and date of . Physical Therapy Management: 1. AROME of the head and neck x 10 repetitions. 2. Bilateral shoulder shrugs x 5 repetitions. 3. Bilateral shoulder protraction and retraction x 5 repetitions. 4. Ankle plantar-dorsiflexion x 10 repetitions. 5. Quad-setting exercises x 10 repetitions. 6. Bilateral knee flexion-extension x 10 repetitions. Patient was able to perform all exercises but fatigued quickly. Patient has poor exercise tolerance. Patient compliant with all therapeutic exercises.
--- NOTE | 2021-04-09 14:04 | NUR ---
resting with eyes closed; sr on monitor; o2 per nc; offers no complaints; will continue to monitor
--- NOTE | 2021-04-09 16:00 | NUR ---
resting in bed with eyes closed; easily aroused; offers no complaints; will continue to monitor
--- NOTE | 2021-04-09 18:04 | NUR ---
pt awake in bed; no apparent distress noted; request neb tx; RT notified; st pac/pvc on monitor; purewick in place; o2 per nc; repositioned for dinner; iv intact and patent; call light within reach
--- NOTE | 2021-04-09 18:26 | NUR ---
pt repositioned to left side
--- NOTE | 2021-04-09 19:45 | NUR ---
AWAKE ON ROUNDS, RESTING QUIETLY IN BED. ALERT AND WELL ORIENTED. PATIENT STATES SHE IS FEELING BETTER TODAY. RESP NON-LABORED AT REST. O2 ON AT 3 L NC. O2 SAT 91% BREATH SOUNDS COARSE WITH LESS WHEEZING NOTED. IV IN , SITE HEALTHY, NS INFUSING AT 10 ML/HR. PURE WICK IN PLACE, DRAINING CLEAR YELLOW URINE. DISCUSSED PLAN OF CARE INCLUDING POSSIBILITY OF TRANSFERRING TO MED/SURG UNIT TONIGHT. PATIENT VERBALIZES UNDERSTANDING OF TEACHING. CALL NOVOA IN REACH.
--- NOTE | 2021-04-09 21:15 | NUR ---
PREWICK CHANGED, LEE ANN-CARE GIVEN. TURNED AND REPOSITONED. SKIN INTACT.
--- NOTE | 2021-04-09 22:20 | NUR ---
PUREWICK LEAKING, PATIENT INCONTINENT OF LARGE AMOUNT OF URINE IN BED. CHUX CHANGED, LEE ANN-CARE GIVEN. PURE WICK REPLACED. REPOSITONED PATIENT IN BED.
[2021-04-10] VITALS (9 sets, daily range): BP systolic 108–164; BP diastolic 51–79
--- NOTE | 2021-04-10 | NUR ---
PATIENT AWAKE ON ROUNDS. NO C/O VOICED. VSS. RESP NON-LABORED.
--- NOTE | 2021-04-10 04:00 | NUR ---
RESTING WITH EYES CLSOED. RESP NON-LABORED. O2 SAT 91% CONTINUES ON O2 AT 3 L NC. NS INFUSING AT KVO TO LH IV SITE. VSS,
[2021-04-10 05:34] LABS: BUN 20 mg/dL (8-23); BUN/CREATININE RATIO 70 (12-20 (CALC)); CHLORIDE 86 mmol/l (95-108); CREATININE 0.3 mg/dL (0.5-1.0); GFR > 60 ML/MIN (>=60 (CALC)); GFR FOR AFR.AMER. > 60 ML/MIN (>=60 (CALC)); POTASSIUM 4.3 mmol/l (3.5-5.1); SODIUM 133 mmol/l (137-146)
[2021-04-10 05:37] LABS: HEMATOCRIT 42.5 % (37.0-47.0); HEMOGLOBIN 13.6 g/dl (12.0-16.0); IMMATURE GRANULOCYTES 5.1 % (0.0-5.0); MEAN CELL VOLUME 98.2 fL CALC (80.0-100.0); MEAN CORPUSCULAR HGB 31.4 pG CALC (26.0-32.0); NEUT# 9.41 thou/uL (2.00-7.15); RED BLOOD COUNT 4.33 mill/uL (4.20-5.60); RED CELL DISTRI WIDTH 12.5 % (11.5-15.5)
[2021-04-10 05:42] LABS: ANION GAP 10 (6-22 (CALC))
--- NOTE | 2021-04-10 05:55 | NUR ---
AWAKE ON ROUNDS. VSS. RESP SHALLOW, NON-LABORED. PURE WICK IN PLACE, HAD 800 ML CLEAR YELLOW URINE OUT.
[2021-04-10 05:56] LABS: CARBON DIOXIDE 41 mmol/l (22-30)
--- NOTE | 2021-04-10 07:20 | NUR ---
pt awake in bed; offers no complaints; no apparent distress noted; assessment completed at this time; pt alert and oriented; denies pain/ discomfort; resp even and unlabored; lungs coarse with faint exp wheezing noted; skin color wnl; o2 per nc at 3L; supervisor car and yard loose cough noted; hr irreg; weak pedal pulses; no edema noted; st pac/pvc on monitor; abd soft with bs present; no bm noted per teletypewriter operator; purewick catheter intact with clear yellow urine noted to rui; #22 patent to with ivf infusing without complication; no redness or edema noted at site; plan of care/ am meds explained; pt repositioned to high fowlers for breakfast; call light within reach; will continue to monitor
--- NOTE | 2021-04-10 07:40 | NUR ---
pt yelling out; in to assess pt; pt states "I can't breathe"; deep breathing techniques explained; o2 sat noted at 86%; o2 on 3L nc; pt appears very anxious; states "I was fine until that treatment"; st pac/pvc on the monitor; am meds administered; freelance writer remains at bedside; will continue to monitor
--- NOTE | 2021-04-10 08:01 | NUR ---
awake in bed; appears a little less anxious; o2 per nc; st 120s on monitor; will continue to monitor
--- NOTE | 2021-04-10 09:12 | NUR ---
resting in bed with eyes closed; easily aroused when entering room; pt relaxed; admits to feeling much better; sr pac/pvc on monitor; resp non labored; purewick intact; o2 per nc; no apparent distress noted; will continue to monitor
--- NOTE | 2021-04-10 09:40 | NUR ---
call returned to Adriana; update provided
--- NOTE | 2021-04-10 10:02 | NUR ---
resting in bed; sr 80s on the monitor; o2 per nc; call light within reach
--- NOTE | 2021-04-10 10:50 | NUR ---
Dr Valles present at bedside to assess pt; pt sleeping
--- NOTE | 2021-04-10 12:20 | NUR ---
pt resting in bed with eyes closed; no apparent distress noted; iv intact and patent; purewick catheter intact; st pac/pvc on monitor; o2 per nc; call light within reach; will continue to monitor
--- NOTE | 2021-04-10 12:50 | NUR ---
[id number]: complete bed bath with linen change; purewick changed; o2 per nc; repositioned; will continue to monitor
--- NOTE | 2021-04-10 14:15 | NUR ---
resting with eyes closed; visitors x2 has departed; no apparent distress noted; iv intact and patent; purewick intact; sr/st pac/pvc on monitor; o2 per nc; call light within reach; will continue to monitor
--- NOTE | 2021-04-10 16:10 | NUR ---
resting in bed with eyes closed; no apparent distress noted; iv intact and patent; sr pac/pvc on monitor; purewick intact; will continue to monitor
--- NOTE | 2021-04-10 18:00 | NUR ---
pt resting in bed; no apparent distress noted; st pac/pvc on monitor; purewick intact; o2 per nc; call light within reach
--- NOTE | 2021-04-10 19:15 | NUR ---
PATIENT AWAKE, ALERT AND ORIENTED ON ROUNDS. SLT ANXIOUS THIS EVENING. MEDICATED WITH XANAX 0.25 MG PO FOR ANXIETY ORDERED. RESP SLT LABORED, SHALLOW. O2 ON AT 3 L NC. BREATH SOUNDS REMAIN SLT DIMINISHED IN BASES, COARSE THROUGHOUT. CONTINUES TO HAVE PURE WICK IN PLACE, DRAINS CLEAR YELLOW URINE. NO PERIPHERAL EDEMA, PULSES INTACT. LH IV SITE BENIGN, NS INFUSING AT KVO. ANIMAL CARE TAKER SHOWS ST WITH PAC;S AND PVC'S. DISCUSSED PLAN OF CARE. DENIES NEEDS AT THSI TIME. CALL NOVOA IN REACH.
--- NOTE | 2021-04-10 21:30 | NUR ---
HS MEDS GIVEN. REPOSITONED IN BED. PATIENT STATES IF SHE IS ASLEEP SHE DOES NOT WANT TO BE WOKEN UP FOR 2300 NEB TREATMENT. WILL ADVISE RT TO NOT DISTURB PATIENT.
[2021-04-11] VITALS (12 sets, daily range): BP systolic 89–160; BP diastolic 52–88
--- NOTE | 2021-04-11 | NUR ---
SLEEPING SOUNDLY. VSS. RESP NON-LABORED.
--- NOTE | 2021-04-11 02:00 | NUR ---
CONTINUES TO REST QUIETLY. VSS. RESP NON-LABORED.
--- NOTE | 2021-04-11 04:00 | NUR ---
CONTINUES TO SLEEP SOUNDLY. RESP NON-LABORED AT REST. VSS.
[2021-04-11 06:00] LABS: HEMATOCRIT 38.8 % (37.0-47.0); HEMOGLOBIN 12.5 g/dl (12.0-16.0); IMMATURE GRANULOCYTES 2.7 % (0.0-5.0); MEAN CELL VOLUME 98.2 fL CALC (80.0-100.0); MEAN CORPUSCULAR HGB 31.6 pG CALC (26.0-32.0); MEAN CORPUSCULAR HGB CONC 32.2 g/dL CAL (32.0-36.0); NEUT# 10.08 thou/uL (2.00-7.15); RED BLOOD COUNT 3.95 mill/uL (4.20-5.60); RED CELL DISTRI WIDTH 12.5 % (11.5-15.5)
--- NOTE | 2021-04-11 06:10 | NUR ---
PATIENT SLEPT WELL. NO CHANGES TO REPORT. IN NO APPARENT DISTRESS.
[2021-04-11 06:18] LABS: ALBUMIN 2.8 g/dL (3.2-5.0); ALKALINE PHOSPHATASE 94 u/l (38-126); BILIRUBIN, TOTAL 0.3 mg/dL (0.0-1.4); BUN 28 mg/dL (8-23); BUN/CREATININE RATIO 67 (12-20 (CALC)); CHLORIDE 84 mmol/l (95-108); CREATININE 0.4 mg/dL (0.5-1.0); GFR > 60 ML/MIN (>=60 (CALC)); GFR FOR AFR.AMER. > 60 ML/MIN (>=60 (CALC)); SGOT/AST 21 u/l (9-36); SODIUM 135 mmol/l (137-146); TOTAL PROTEIN 4.9 g/dL (6.3-8.2)
[2021-04-11 06:31] LABS: ANION GAP 6 (6-22 (CALC)); CARBON DIOXIDE 48 mmol/l (22-30)
--- NOTE | 2021-04-11 07:30 | NUR ---
pt resting in bed with eyes closed; no apparent distress noted; easily aroused; pt offers no complaints; assessment completed at this time; pt alert and oriented; denies pain; no n/v noted; resp even and unlabored; lungs coarse throughout; skin color wnl; o2 per nc; dry inpatient auditor cough noted; hr irreg; weak pedal pulses; no edema nored; sr pac/pvc on monitor; abd soft with bs present; no bm noted per creative services writer; purewick catheter changed at this time; pericare for mod urinary incont; #22 patent to lh patent with ivf infusing without complication; no redness or edema noted; plan of care/ am meds explained; repositioned per request; call light within reach; will continue to monitor
--- NOTE | 2021-04-11 08:00 | NUR ---
daughter Adriana present at bedside; update provided; Adriana to speak with pt in regards to getting up to chair d/t pt declining when fiction and nonfiction prose writer requested; sr on monitor; o2 per nc; attempting breakfast; will continue to monitor
--- NOTE | 2021-04-11 08:51 | NUR ---
Dr Luz present at bedside to assess pt and discuss plan of care; daughter Adriana at bedside to saydak with MD
--- NOTE | 2021-04-11 10:10 | NUR ---
pt awake in bed; offers no complaints; iv intact and patent; no redness or edema noted at site; st pac/pvc in monitor; purewick intact and maintained; call light within reach; will continue to monitor
--- NOTE | 2021-04-11 12:02 | NUR ---
awake in bed; declined lunch at this time; meal prep per pt request; repositioned to high fowlers; potassium explained; pt states "i can't drink that much fluid"; pt now requesting to have to "big" pill; order to be changed
--- NOTE | 2021-04-11 13:03 | NUR ---
daughter Adriana present on unit; inquiring about Hospice; Hospice to be consulted per daughter request;
--- NOTE | 2021-04-11 14:15 | NUR ---
resting in bed with eyes closed; easily aroused; iv intact and patent; no redness or edema noted at site; st pac/pvc on monitor; purewick intact and maintained; o2 per nc; pt repositions self for comfort; call light within reach; will continue to monitor
--- NOTE | 2021-04-11 15:50 | NUR ---
Visitors x2 present at bedside; Hospice care x2 present to speak with family and pt
--- NOTE | 2021-04-11 16:07 | NUR ---
awake in bed; family and hospice remain at bedside; st on monitor; purewick in place; o2 per nc; call light within reach; will continue to monitor
--- NOTE | 2021-04-11 18:05 | NUR ---
resting in bed with eyes closed; no apparent distress noted; easily aroused; pt refused dinner; po fluids provided; declined repositioning; call light within reach
--- NOTE | 2021-04-11 19:00 | NUR ---
REPORT GIVEN BY MER. PATIENT RESTING IN BED WITH EYES CLOSED. RESP EVEN AND UNLABORED, 3L VIA NC. COARSE LUNG SOUNDS PRESENT. NO S/S OF DISTRESS NOTED. FALL AND SAFTEY PRECAUTIONS IN PLACE. IV INFUSING FLUIDS. SR/ST ON TELE. PLAN OF CARE DISCUSEED. PATIENT INFORMED TO CALL WITH ANY QUESTIONS OR OCNCERNS.
--- NOTE | 2021-04-11 20:58 | NUR ---
PM MEDICATION GIVEN. PATIENT REQUESTED XANAX. PATIENT REFUSING BREATHING TREATMENTS.
[2021-04-12] VITALS (7 sets, daily range): BP systolic 85–138; BP diastolic 50–79
--- NOTE | 2021-04-12 | NUR ---
PATIENT RESTING WITH EYES CLOSED. RESP EVEN AND UNLABORED. NO S/S OF DISTRESS NOTED. FALL AND SAFTEY PRECAUTIONS IN PLACE.
--- NOTE | 2021-04-12 04:32 | NUR ---
PATIENT HAD TWO LARGE LOOSE BM AND INCONTIENT OF URINE. FULL LIEN CHANGE PERFORMED AND BED BATH
--- NOTE | 2021-04-12 07:35 | NUR ---
PATIENT LAYING IN BED AT THIS TIME. MARKETING FINANCE MANAGER DONE SEE INTERVENTIONS. LUNG CHERRY ARE COARSE IN UPPER CHERRY AND DIMINISHED IN LOWER FIELD. BOWEL SOUNDS PRESENT IN ALL FOUR QUADS. PATIENT INCONTINENT OF URINE. ZHENNET REMAINS ON O2 AT 3 LITERS AT THIS TIME. AND SPO2 IS CURRENTLY 91%. PATIENT HR AT THIS TIME IS SR AT 89 WITH PVC'S NOTED. SIDERAILS ARE UP CALL LIGHT WITHIN REACH. PATIENT AWAITING TRANSFER TO HOSPICE.
--- NOTE | 2021-04-12 07:43 | NUR ---
PATIENT REFUSING BREAKFAST AT THIS TIME.
--- NOTE | 2021-04-12 10:20 | NUR ---
PATIENT INCONTINENT OF LARGE SOFT STOOL AND URINE AT THIS TIME PATIENT CLEANED AND LEE ANN CARE GIVEN. SON HER TO SEE PATIENT AT THIS TIME.
--- NOTE | 2021-04-12 12:00 | NUR ---
PATIENT LAYING IN BED RESTING. ALERT AND ORIENTED AND REFUSING TO EAT LUNCH AT THIS TIME. PATIENT INCONTINENT OF URINE AND BM AT THIS TIME. SIDERAILS ARE UP CALL LIGHT WITHIN REACH.
--- NOTE | 2021-04-12 14:08 | NUR ---
PATIENT RESTING IN BE WITH EYES CLOSED AT THIS TIME. SIDERAILS ARE UP X 2 CALL LIGHT IS WITHIN REACH. RESPIRATIONS ARE SHALLOW AND UNLABORED AT THIS TIME. O2 REMAINS ON AT 2 LITERS.
--- NOTE | 2021-04-12 16:05 | NUR ---
PATIENT LAYING IN BED AT THIS TIME EYES CLOSED RESPIRATIONS EASY AND UNLABORED AT THIS TIME. SIDERAILS ARE UP CALL LIGHT WITHIN REACH.
--- NOTE | 2021-04-12 17:18 | NUR ---
THIS NURSE REACHED OUT TO [facility] DUE TO NO ONE SHOWING UP TO RE-EVALUATE CLIENT AT THIS TIME.
--- NOTE | 2021-04-12 17:21 | NUR ---
TANYA FROM [facility] CALLED AT THIS TIME AND STATED THAT SHE SPOKE TO THE PATIENT'S DAUGHTER AND THEY HAVE DECIDED TO RE-EVALUATE PATIENT ON 04/13/21. TANYA APOLOGISED THAT THIS WAS NOT COMMUNICATED BACK TO THE NURSING STAFF.
--- NOTE | 2021-04-12 20:07 | NUR ---
PATIENT REFUSING ALL PM MEDICATIONS
[2021-04-13] VITALS: BP 117/64
--- NOTE | 2021-04-13 | NUR ---
PATIENT RESTING WITH EYES CLOSED. RESP EVEN AND UNLABORED. NO S/S OF DISTRESS NOTED. FALL AND SAFTEY PRECAUTIONS IN PLACE.
[2021-04-13 04:00] VITALS: BP 141/90
--- NOTE | 2021-04-13 04:00 | NUR ---
REGIONAL TELECOMMUNICATIONS SPECIALIST CLEANING PATIENT AND CHANGING LINENS
[2021-04-13 07:00] VITALS: BP 94/54
--- NOTE | 2021-04-13 07:00 | NUR ---
PATIENT RECIEVED FROM NIGHT NURSE
--- NOTE | 2021-04-13 07:24 | NUR ---
04/12/21 Spoke with nursing and patient is to go home on hospice. She is not appropriate for PT at this time
--- NOTE | 2021-04-13 08:45 | NUR ---
PATIENT IS A/O X2/3 SHE KNOWS THE MONTH BUT NOT THE DAY. DENIES PAIN AT THIS TIME. REFUSED AM MEDICATIONS WHEN ASKED AND EDUCATED HER ON THE IMPORTANCE OF THEM. REFUSED TO EAT. STATED SHE JUST WANTS TO GO HOME. HOSPICE TANYA CALLED RECENTLY TO CONFIRM THAT BEREKET THE HOSPICE NURSE WILL BE COMING APPOX 1000 FOR A RE-EVAL ON THE PATIENT. WEAK HAND DRILL PRESS OPERATOR FOR METAL. STRONG PULSES, NO EDEMA NOTED. WHEEZING/DIMINISHED LUNG SOUNDS. ACTIVE BOWEL SOUNDS. SAFETY MEASURES IN PLACE. CALL LIGHT IN REACH. WILL CONTINUE TO MONITOR.
[2021-04-13 10:00] VITALS: BP 134/91
--- NOTE | 2021-04-13 10:00 | NUR ---
HOSPICE CAME UP. CALLED MOHAN THE DAUGHTER TO COME UP WELL.
--- NOTE | 2021-04-13 10:30 | NUR ---
HOSPICE AND DAUGHTER MOHAN SPOKE TO PATIENT. HOSPICE WAITING ON DOCTOR'S D/C ORDERS TO PLACED.
[2021-04-13] MEDS ORDERED: DILTIAZEM120 M1 PO (11:30)
[2021-04-13 12:00] VITALS: BP 117/56
--- NOTE | 2021-04-13 12:00 | NUR ---
PATIENT IS RESTING IN BED
[2021-04-13 14:00] VITALS: BP 118/56
--- NOTE | 2021-04-13 14:00 | NUR ---
PATIENT IS SITTING ON BED FORD, SAFETY MEASURES IN PLACE. CALL LIGHT IN PLACE. WILL CONTINUE TO MONITOR.
--- NOTE | 2021-04-13 15:30 | NUR ---
[facility] IS HERE TO [place] OPERATIONS CONSULTANT THE PATIENT.
--- NOTE | 2021-04-13 15:39 | NUR ---
PATIENT HAS LEFT THE FLOOR WITH [facility]
== END 2021-04-13 15:39 | disposition hospice, home (50) | DRG 190 ==
LOC: ED 00:07 → ED-I 02:30 → ED 03:25 → ICU 03:26
PROVIDERS: Family Medicine; Internal Medicine; Nurse Practitioner; ADMIT Internal Medicine; ATTEND Internal Medicine
DX: J44.1 Chronic obstructive pulmonary disease with (acute) exacerbation (principal); J96.21 Acute and chronic respiratory failure with hypoxia; I21.A1 Myocardial infarction type 2; E87.2 Acidosis; N39.0 Urinary tract infection, site not specified; E87.1 Hypo-osmolality and hyponatremia; I10 Essential (primary) hypertension; I49.3 Ventricular premature depolarization; F41.1 Generalized anxiety disorder; E87.6 Hypokalemia; E87.8 Other disorders of electrolyte and fluid balance, not elsewhere classified; F32.9 Major depressive disorder, single episode, unspecified; K21.9 Gastro-esophageal reflux disease without esophagitis; E78.5 Hyperlipidemia, unspecified; F17.210 Nicotine dependence, cigarettes, uncomplicated; Z51.5 Encounter for palliative care; Z66 Do not resuscitate; Z99.81 Dependence on supplemental oxygen; Z20.822 Contact with and (suspected) exposure to COVID-19; R30.0 Dysuria; B96.20 Unspecified Escherichia coli [E. coli] as the cause of diseases classified elsewhere
CPT/HCPCS: J1650; Q9967